=== PATIENT | female | born 1955 ===

== ENCOUNTER 2021-07-08 05:55 | Day surgery (SDC) | payer MEDICARE ==
[2021-07-08] MEDS ORDERED: ceFAZolin/Water 2 GM/20 ML 2 GM/20 ML SYRINGE IV NR (06:00)
[2021-07-08] MEDS ORDERED: SODIUM CHLORIDE 0.9% 1000 ML 1,000 ML IV SCH (06:00)
[2021-07-08 07:00] LABS: Hematocrit 31.5 % (30.3-42.9); Hemoglobin 10.4 gm/dl (10.1-14.3); Mean Corpuscular HGB Conc 33 % (30-34); Mean Corpuscular Volume 92 fl (79-97); Platelet Count 141 K/mm3 (140-440); Red Blood Count 3.42 M/mm3 (3.65-5.03); Red Cell Distribution Width 19.2 % (13.2-15.2)
[2021-07-08] MEDS ORDERED: fentaNYL 100 MCG/2 ML INJ IV PRN (07:00)
[2021-07-08] MEDS ORDERED: LIDOCAINE PF 100 MG/5 ML (CARDIAC SYRINGE) IV ONE (07:17)
[2021-07-08] MEDS ORDERED: dexAMETHasone 20 MG/5 ML VIAL ONE (07:17)
[2021-07-08] MEDS ORDERED: ONDANSETRON 4 MG/2 ML INJ ONE (07:17)
[2021-07-08 07:18] LABS: Calcium 9.2 mg/dL (8.4-10.2)
[2021-07-08] MEDS ORDERED: propofoL 200 MG/20 ML VIAL IV ONE ×2 (07:18→09:38)
[2021-07-08] MEDS ORDERED: fentaNYL 100 MCG/2 ML INJ ONE (07:18)
--- NOTE | 2021-07-08 07:29 | Anesthesia Day of Surgery ---
Anesthesia Day of Surgery - Day of Surgery Patient Examined: Yes Patient H&P Reviewed: Yes Patient is NPO: Yes Beta Blockers: Yes (carvedilol today AM)
--- NOTE | 2021-07-08 07:29 | Anesthesia Consultation ---
Anesthesia Consult and Med Hx Date of service: 07/08/21 - Airway Anesthetic Teeth Evaluation: Good ROM Head & Neck: Adequate Mental/Hyoid Distance: Adequate Mallampati Class: Class III Intubation Access Assessment: Possibly Difficult - Pre-Operative Health Status ASA Pre-Surgery Classification: ASA3 Proposed Anesthetic Plan: General - Pulmonary Hx Smoking: No Hx Respiratory Symptoms: No - Cardiovascular System Hx Hypertension: Yes (took carvedilol, imdur, hydralazine this morning) Hx Heart Attack/AMI: No Hx Percutaneous Transluminal Coronary Angioplasty (PTCA): No Hx Cardia Arrhythmia: No (palpitations; per patient, cardiology adjusting antihypertensives to treat) Hx Pacemaker: No Hx Internal Defibrillator: No - Central Nervous System CVA: No - Endocrine Hx End Stage Renal Disease: Yes (last HD 07/07/21) Hx Liver Disease: No Hx Insulin Dependent Diabetes: No Hx Non-Insulin Dependent Diabetes: No Hx Thyroid Disease: No - Hematic Hx Anemia: Yes - Additional Comments Anesthesia Medical History Comments: No hx anesthetic complications.
[2021-07-08] MEDS ORDERED: BUPIVACAINE/PF (0.5%) 5 MG/1 ML 30 ML VIAL INFILTRATI ONE ×4 (07:43→10:25)
[2021-07-08] MEDS ORDERED: HEPARIN 10,000 UNITS/10 ML VIAL ONE (07:43)
[2021-07-08] MEDS ORDERED: SODIUM CHLORIDE 0.9% 250ML 250 ML ONE (07:44)
[2021-07-08] MEDS ORDERED: SODIUM CHLORIDE 0.9% 500 ML 500 ML ONE (07:44)
[2021-07-08] MEDS ORDERED: LIDOCAINE 2%/EPINEPHRINE 1:200,000 VIAL (20 ML) INFILTRATI ONE (07:45)
[2021-07-08] MEDS ORDERED: HEPARIN 5,000 UNIT/1 ML VIAL ONE (07:46)
--- NOTE | 2021-07-08 08:13 | Short Stay Summary ---
Short Stay Documentation Date of service: 07/08/21 Narrative H&P: The patient is a 66-year-old female with a history of end-stage renal disease who was on hemodialysis through a left brachiocephalic arteriovenous fistula. She has multiple large pseudoaneurysms near the arterial inflow however the venous outflow of the fistula is normal in caliber. There is some evidence of thinning of the skin however there is no obvious ulceration. She recently underwent a fistulogram with angioplasty of the cephalic arch, to relieve pressure on the fistula however she is in need of revision with excision of the pseudoaneurysms and an interposition graft. She will require a permacath until the graft is ready for use. She and her family were given the risk, benefits, and alternative procedures and have consented to the procedure. - History Past Medical History: anemia, dialysis, ESRD, hypertension Past Surgical History: cholecystectomy, , thyroidectomy (Partial thyroidectomy), hysterectomy (Partial hysterectomy), Other (Creation of left brachiocephalic arteriovenous fistula, peritoneal dialysis catheter) Social history: lives with family - Allergies and Medications Current Medications: Allergies No Known Allergies Allergy (Verified 07/04/21 16:08) Home Medications Medication Instructions Recorded Confirmed Last Taken Type Aspirin [Starke Aspirin EC] 81 mg PO DAILY 07/04/21 07/08/21 07/07/21 09:00 History AtorvaSTATin [Lipitor] 40 mg PO QHS 07/04/21 07/08/21 07/07/21 20:00 History Docusate Calcium 240 mg PO HS 07/04/21 07/08/21 07/07/21 20:00 History Ergocalciferol (Vitamin D2) 1,250 mcg PO 1XW 07/04/21 07/08/21 07/07/21 08:00 History [Drisdol] Gabapentin 300 mg PO HS 07/04/21 07/08/21 07/07/21 20:00 History Isosorbide Mononitrate [Isosorbide 30 mg PO DAILY 07/04/21 07/08/21 07/08/21 05:00 History Mononitrate ER] Loratadine [Claritin] 10 mg PO DAILY 07/04/21 07/08/21 07/07/21 09:00 History Sevelamer Carbonate [Renvela] 800 mg PO TIDWM 07/04/21 07/08/21 07/07/21 18:00 History carvediloL [Coreg] 25 mg PO BID 07/04/21 07/08/21 07/08/21 05:00 History hydrALAZINE [Apresoline] 25 mg PO BID 07/04/21 07/08/21 07/08/21 05:00 History Active Medications Hydrocodone Bitart/Acetaminophen (Hydrocodone/Acetaminophen 5-325 Mg Tab) 2 each PO ONCE PRN PRN Reason: Pain, Moderate (4-6) Stop: 07/08/21 18:00 Fentanyl (Fentanyl 100 Mcg/2 Ml Inj) 50 mcg IV Q5MIN PRN PRN Reason: Pain , Severe (7-10) Stop: 07/08/21 18:00 Cefazolin Sodium (Ancef/Sterile Water 2 Gm/20 Ml) 2 gm in 20 mls @ 80 mls/hr IV PREOP NR; Protocol Stop: 07/08/21 20:00 Sodium Chloride (Nacl 0.9% 1000 Ml) 1,000 mls @ 42 mls/hr IV DIRECT THEE Stop: 07/08/21 23:59 - Physical exam General appearance: no acute distress HEENT: Atraumatic Lungs: Normal air movement Heart: Regular rate Gastrointestinal: normal Female Genitourinary: deferred Rectal Exam: deferred Extremities: abnormal (Left arm arteriovenous fistula with palpable thrill, 3 large pseudoaneurysms in the cannulation zone without evidence of ulceration) - Brief post op/procedure progress note Date of procedure: 07/08/21 Pre-op diagnosis: Complications of Dialysis Access Post-op diagnosis: same Procedure: 1. Ultrasound-Guided Access Right Internal Jugular Vein 2. Placement of 19 cm Glidepath Permacath 3. Radiologic Supervision with Interpretation 4. Revision of Left Arm Arteriovenous Fistula with Excision of Pseudoaneurysms and Repair with Interposition 7 mm Bovine Artegraft Anesthesia: GETA Surgeon: BLAS LOGAN Estimated blood loss: other (250 mL) Pathology: list (Left arm AV fistula pseudoaneurysm was sent to pathology) Specimen disposition: to lab Condition: stable - Disposition Condition at discharge: Good Disposition: 01 HOME / SELF CARE / HOMELESS Short Stay Discharge Plan Activity: other (No heavy lifting with left arm for 2 weeks. Do not use left arm arteriovenous graft for dialysis access until cleared by vascular surgeon.) Wound: remove dressing (Okay to remove left arm dressing in 48 hours.), other (Once dressing has been removed from left arm okay to wash the incision with soap and water but do not soak in water for 2 weeks.) Follow up with: BLAS LOGAN MD [Staff Physician] - 14 Days Prescriptions: HYDROcodone/APAP 7.5-325 [[place] 7.5/325] 1 each PO Q6HR PRN #40 tablet PRN Reason: Pain
[2021-07-08] MEDS ORDERED: ePHEDrine SULFATE 50 MG/1 ML INJ ONE (08:35)
[2021-07-08] MEDS ORDERED: VASOPRESSIN 20 UNIT/1 ML INJ ONE (09:21)
[2021-07-08] MEDS ORDERED: MIDAZOLAM 2 MG/2 ML INJ ONE (09:39)
[2021-07-08] MEDS ORDERED: rifAMPin 600 MG VIAL ONE (09:53)
[2021-07-08] MEDS ORDERED: HEPARIN 10,000 UNITS/10 ML VIAL IR ONE (10:25)
[2021-07-08] MEDS ORDERED: HEPARIN 5,000 UNIT/1 ML VIAL IR ONE (10:26)
[2021-07-08] MEDS ORDERED: SODIUM CHLORIDE 0.9% IRR 1,500 ML BOTTLE IR ONE (10:27)
[2021-07-08] MEDS ORDERED: SODIUM CHLORIDE 0.9% 250 ML IVPB IR ONE (10:27)
[2021-07-08] MEDS ORDERED: rifAMPin 600 MG VIAL IV ONE (10:28)
--- NOTE | 2021-07-08 11:32 | Fluoroscopy Report ---
FLUOROSCOPY CENTRAL VENOUS DEVICE PLACEMENT INDICATION: ESRD. COMPARISON: None. IMPRESSION: 46 seconds of fluoroscopy time was provided by radiology during right IJ permacath place ment. 2 fluoroscopic images are presented demonstrating the distal tip of the permacath in the super ior right atrium. There is no gross pneumothorax on fluoroscopy. Please correlate with the surgical n otes as needed. Signer Name: Barrett Ramos Jr, MD Signed: 07/08/2021 11:28 AM Workstation Name: [id number]
--- NOTE | 2021-07-08 11:44 | Operative Report ---
Operative Report Operative Report: Date of Procedure: 07/08/2021 Pre-operative Diagnosis: Complications of Dialysis Access Post-operative Diagnosis: Same Procedure(s): 1. Ultrasound-Guided Access Right Internal Jugular Vein 2. Placement of 19 cm Glidepath Permacath 3. Radiologic Supervision with Interpretation 4. Revision of Left Arm Arteriovenous Fistula with Excision of Pseudoaneurysms and Repair with Interposition 7 mm Bovine Artegraft Surgeon: Darius Downs M.D. Vacuum Technician: None Anesthesia: General Endotracheal Anesthesia EBL: 250 mL Counts: Correct Complications: None Condition: Stable Findings: The permacath was placed with the distal tip at the cavoatrial junction and there was no evidence of pneumothorax at the completion of the procedure. Left arm arteriovenous graft had a palpable thrill and the patient had a palpable left radial pulse at the completion of the case. Specimen: Left arm arteriovenous fistula pseudoaneurysm was sent to pathology. Indication: The patient is a 66-year-old female with history of end-stage renal disease who is on hemodialysis through a left brachiocephalic arteriovenous fistula. She has multiple large pseudoaneurysms with thinning of the skin and requires revision of the fistula. She will require a permacath until her access is able to be used for hemodialysis. She was given the risk, benefits, and alternative procedures and consented to the procedure. Description of Procedure: The patient was brought to the operating room and laid in supine position. After timeout was performed general endotracheal anesthesia was achieved and the right neck and chest were prepped and draped in normal sterile fashion. Ultrasound was used to identify the right internal jugular vein and the overlying skin and soft tissue was anesthetized with lidocaine. An 11 blade was used to make a small stab incision and a 21-gauge micropuncture needle was used with ultrasound guidance to enter the right internal jugular vein. A 0.018 micropuncture wire was advanced into the inferior vena cava under fluoroscopy and after removing the needle the micropuncture sheath was advanced into the internal jugular vein by Seldinger technique. The wire and inner cannula were removed and a 0.035 J-wire was advanced into the inferior vena cava under direct fluoroscopic visualization. The tract was serially dilated up to a 16 [place]ian peel-away safety sheath. An exit site on the chest was then chosen and the presumed tunnel was anesthetized with lidocaine. A small stab incision was made on the chest and then the permacath was connected to the tunneler and pulled antegrade through the tunnel. The J-wire and inner cannula were remove from the SafeSheath and the catheter was inserted into the safe sheath. The safe sheath was then peeled away while advancing the catheter. The catheter was positioned under fluoroscopy with the distal tip in the right atrium. Once in adequate position, both ports were aspirated, flushed, and primed with the appropriate amount of heparin. The neck incision was then closed with 4-0 Monocryl in interrupted subcuticular fashion and dressed with Dermabond. The permacath was secured in place with a 2-0 Ethilon in interrupted fashion and dressed with a sterile dressing. Final fluoroscopy demonstrated the catheter was in adequate position with the distal tip at the cavoatrial junction and no evidence of pneumothorax. The sterile field was then broken and the patient's left arm was prepped and draped in normal sterile fashion. A longitudinal incision was created, centered over the areas of pseudoaneurysm, extending from the upper bicep to the distal bicep. A combination of cautery and sharp dissection were used to then carried the incision down to the pseudoaneurysms. Curved Mayos were then used to dissect the pseudoaneurysm circumferentially throughout the incision until there was normal caliber of the fistula at the ar terial inflow and the venous outflow. Once the fistula had been dissected circumferentially the arterial inflow and venous outflow were clamped with DeBakey clamps. I then transected the areas of pseudoaneurysm and passed them off as a specimen. A Leticia-Wick tunneler was then used to tunnel, lateral to the incision, and a 7 mm bovine Artegraft was pulled through the tunnel. The arterial inflow of the graft was then beveled and an end-to-end anastomosis was created using two 5-0 Prolene's in running fashion. I clamped the graft just distal to the anastomosis and then released the clamp on the fistula to ensure hemostasis at the suture line. I then cut the graft to length and beveled the venous outflow end of the graft. An end-to-end anastomosis was then created between the fistula and the graft using two 5-0 Prolene's in running fashion. Prior to completing the closure I flashed the venous outflow as well as the arterial inflow and then flushed the graft with heparinized saline. I completed the anastomosis and released all clamps allowing flow through the graft which had a palpable thrill. Redundant skin including the areas of pseudoaneurysm was resected and then the skin and soft tissue were anesthetized with 0.5% Marcaine. Hemostasis within the wound was then achieved with a combination of manual pressure, cautery, and Vistaseal. Once hemostasis was achieved the wound was closed in 2 layers using a 3-0 Vicryl running fashion in the deep dermal layer and 4-0 Monocryl in running fashion the subcuticular layer and dressed with a combination of Dermabond, Telfa, a Solo roll, and a 3 inch Jairon bandage. The patient tolerated the procedure well. All sponge, needle, and instrument counts were correct. The patient was taken to the recovery area in stable condition.
[2021-07-08] MEDS: HYDROcodone/ACETAMINOPHEN 5-325 MG TAB PO PRN ×2 (12:31→12:39)
--- NOTE | 2021-07-08 18:22 | Post Anesthesia Evaluation ---
- Post Anesthesia Evaluation Patient Participated: Yes Airway Patent: Yes Stable Respiratory Function: Yes Nausea/Vomiting: No Temp > 96.8F: Yes Pain Manageable: Yes Adequeate Hydration: Yes Anesthesia Complications: No
[2021-07-08 19:50] VITALS: BP 123/60
== END 2021-07-08 14:50 | disposition home or self-care (01) ==
LOC: OR 05:55
PROVIDERS: ATTEND Surgery Vascular Surgery
DX: T82.898A Other specified complication of vascular prosthetic devices, implants and grafts, initial encounter (principal); I12.0 Hypertensive chronic kidney disease with stage 5 chronic kidney disease or end stage renal disease; N18.6 End stage renal disease; D64.9 Anemia, unspecified; Z98.890 Other specified postprocedural states; Z79.82 Long term (current) use of aspirin; Z79.899 Other long term (current) drug therapy; Z90.49 Acquired absence of other specified parts of digestive tract; Z98.891 History of uterine scar from previous surgery; Z99.2 Dependence on renal dialysis; Y82.8 Other medical devices associated with adverse incidents; Y92.89 Other specified places as the place of occurrence of the external cause
CPT/HCPCS: 36415; 36558; 36832; 37607; 77001; 80048; 85027; 86850; 86900; 86901; 88304; C1750; C1769; J0690; J1100; J1644; J2001; J2250; J2405; J2704; J3010; J3490; J7030; J7040; J7050